=== PATIENT | male | born 1975 | race Caucasian/White ===

== ENCOUNTER 2018-01-25 13:01 | Outpatient (CLI) | payer OTHER, SELFPAY ==
--- NOTE | 2018-01-25 11:45 | DI.RAD_ITS ---
SYMPTOMS/DIAGNOSIS: LT LATERAL FOOT AND 5TH TOE PAIN, S/P INJURY, ROLLED 300 LB BARREL OVER FOOT LEFT FOOT: No fracture or dislocation is seen. IMPRESSION: Negative left foot.
== END 2018-01-25 13:21 ==
PROVIDERS: PCP Emergency Medicine; Visit Provider Nurse Practitioner Family
DX: M79.672 Pain in left foot (principal); M79.675 Pain in left toe(s)
CPT/HCPCS: 73630

== ENCOUNTER 2018-03-25 07:28 | Emergency (ER) | payer SELFPAY ==
[2018-03-25 07:36] VITALS: BP 114/79; PULSE 58; RESP 15; TEMP 37.1; O2SAT 97
--- NOTE | 2018-03-25 07:38 | ED.GENADUL_ITS ---
Discharge Plan Disposition Patient Disposition: HOME Condition: Stable Discharge Details Chief Complaint: EarProblem Clinical Impression: Pharyngitis, Ear pain, right Primary Care Provider: Yogi Lucas ED Provider: Meena Reagan Home Meds and New Rx's Prescriptions: No Action No Known Home Meds RF: 0 Discharge Instructions Instructions: Pharyngitis (ED), Earache (ED) Additional Instructions: Please return immediately to the emergency department if you develop any new or worsening symptoms or if you become otherwise concerned. It is extremely important that you make an appointment to be seen by your primary care doctor within the next 1-2 weeks in follow-up for this visit. Referrals: Yogi Lucas, [Primary Care Provider] - Medical Decision Making Lon Hartman is a 42-year-old man without history of major medical problems presenting to the emergency department with right-sided ear pain and throat pain with swallowing since yesterday morning. On exam he is very well and nontoxic-appearing. He is handling secretions without issue, he has exudate on bilateral retained tonsillar tissue and erythema of the posterior pharynx. There is no intraoral lesion or edema. Bilateral TMs with mild serous effusion , no injection or bulging, normal canals. No lymphadenopathy. Exam/history not consistent with meningitis, sepsis, abscess, impending airway compromise, or other acute life-threatening process. Concern for bacterial versus viral pharyngitis and likely referred pain to the ear. Plan for rapid strep, ibuprofen. Rapid strep negative. Suspect viral pharyngitis. Discussed appropriate ibuprofen, Tylenol use. Lengthy discussion with patient regarding return to emergency department precautions and importance of outpatient follow-up with his PCP. Patient is amenable to the plan. Medical Records Medical records reviewed: Yes I reviewed the patient's medical records. Lab Data Lab results reviewed: Yes I reviewed the patient's lab results. HPI General Mode of arrival: ambulatory . Date/Time Provider Initiated Documentation: 03/25/18 07:37 . Limitations to Documentation: no limitations . Information obtained by: RN notes reviewed and old records reviewed . HPI Narrative: Lon Hartman is a 22-year-old man reported history of major medical problems presenting to the emergency department with ear pain. Patient reports that yesterday morning he woke up with right-sided ear pain. He reports pain with swallowing, but no other pain. He reports that over the past week or so he has had cold symptoms, with nasal congestion and mild productive cough. No fevers, no difficulty swallowing, no shortness of breath, no vomiting /diarrhea, no rash, no numbness/tingling/weakness. Has been eating and drinking as usual. No recent travel. No drainage from the ear. Patient reports that as a child he had his adenoids and his tonsils removed, and also had tubes in his ears. He reports no ear problems since childhood. Took ibuprofen yesterday for ear pain, has not taken anything today. Related Data Home Medications Medication Instructions Recorded Confirmed Unknown [No Known Home Meds] 03/25/18 03/25/18 Allergies Allergy/AdvReac Type Severity Reaction Status Date / Time oxycodone HCl [From Percocet] AdvReac Mild Nausea Verified 03/25/18 07:39 Review of Systems Review of Systems Constitutional: denies fevers Eyes: denies eye pain ENT: denies facial pain, dental pain, reports sore throat, ear pain Cardiovascular: denies chest pain Respiratory: denies SOB, cough GI: denies abdominal pain, vomiting, diarrhea : denies flank pain MSK: denies back pain, neck pain, arthralgias, myalgias Skin: denies rash Neuro: denies headaches, n/t, weakness Exam Narrative Exam Narrative: Constitutional: well and [id number], pleasant, conversing normally HENT: head atraumatic, normocephalic normal inspection, mucous membranes moist, exudate on bilateral remaining tonsillar tissue, erythema the posterior pharynx , no intraoral lesion, no edema of the oropharynx, b/l canals normal, bilateral TMs with mild serous effusion and no injection or bulging, handling secretions without issue, uvula midline, normal voice Eyes: conjunctiva normal, sclera normal, pupils 3mm b/l Neck: no stridor, normal ROM, trachea midline, no lymphadenopathy Chest: normal inspection Resp: normal work of breathing, LCTAB Cardio: normal rate, normal rhythm, no murmur appreciated Back: normal inspection, no rash Skin: warm, dry, normal color, no rash Neuro: alert, not altered, grossly non-focal, normal tone Psych: normal mood, normal affect, normal behavior
[2018-03-25] MEDS: Ibuprofen 400 MG TAB PO (08:12)
[2018-03-25 08:44] VITALS: BP 114/79; PULSE 58; RESP 15; TEMP 37.1; O2SAT 97
== END 2018-03-25 08:45 | disposition home or self-care (01) ==
LOC: ER 08:53
PROVIDERS: Emergency Provider Student in an Organized Health Care Education/Training Program; PCP Emergency Medicine
DX: H92.01 Otalgia, right ear (principal); J02.9 Acute pharyngitis, unspecified
CPT/HCPCS: 87880; 99282; 87081

== ENCOUNTER 2018-09-25 09:36 | Emergency (ER) | payer SELFPAY ==
[2018-09-25 09:42] VITALS: BP 140/84; PULSE 86; RESP 12; TEMP 36.9; O2SAT 97
--- NOTE | 2018-09-25 09:53 | W.ED.GENAD ---
Discharge Plan Disposition Patient Disposition: HOME Condition: Improving Discharge Details Chief Complaint: Orthopedic Clinical Impression: Traumatic ecchymosis of knee Primary Care Provider: Yogi Lucas ED Provider: Reji Rodgers Home Meds and New Rx's Prescriptions: No Action No Known Home Meds RF: 0 Discharge Instructions Additional Instructions: Use rest, ice, elevation and compression to reduce discomfort. As we discussed, you will likely have ongoing migration of the bruising including down to the foot oftentimes. Return if you develop a fever, worsening swelling, or any other acute concerns. May use Tylenol and/or ibuprofen as needed for pain. May use warm/moist heat to improve speed of healing. Medical Decision Making 42-year-old male presents with right knee pain, swelling, bruising over 1 week's time since being struck while playing catcher in an adult softball league. He is well-appearing with normal vital signs. His exam is without deficit but does certainly demonstrate diffuse ecchymosis and swelling of the right knee. Patient referred for Xray: Discussed with him anticipated course of resolution and likely further dependent migration of bruising. We will advocate rest, ice, compression and elevation to improve and speed resolution. HPI General Mode of arrival: ambulatory. Date/Time Provider Initiated Documentation: 09/25/18 09:37. Limitations to Documentation: no limitations. Information obtained by: patient. History of Present Illness 42 year old M presents to the emergency department with the chief complaint of Right knee pain and swelling, described as moderate, Quality is described as aching, dull and constant, and is localized to the right and lower extremity. Patient reports no radiation. Patient started experiencing this day(s) and it has been constant. No relieving factors improve symptom(s), No exacerbating factors reported . Patient notes denies fever/chills. Patient did receive the following treatments prior to arrival, cold therapy Related Data Home Medications Medication Instructions Recorded Confirmed Unknown [No Known Home Meds] 03/25/18 09/25/18 Allergies Allergy/AdvReac Type Severity Reaction Status Date / Time oxycodone HCl [From Percocet] AdvReac Mild Nausea Verified 09/25/18 09:44 General Stated Complaint: Orthopedic ULISES: 4 Review of Systems Review of Systems No motor weakness. Denies other injury. 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 Pleasant, well groomed, interactive. HEAD: Normocephalic, atraumatic ENT: Mucous membranes moist, oropharynx unremarkable, External ear exam unremarkable EYES: PERRL, EOMI NECK: Full ROM, no ENEDELIA, no menigismus EXT: Full ROM, motor rated 5 out of 5 in the bilateral lower extremity. Sensation intact throughout. The right knee is diffusely swollen, tender, ecchymotic with distal anterior tibial bruising as well. 2+ DP bilaterally. Neuro: Grossly normal neurologic exam, conversant, interactive. Psych: Speech fluent, thoughts congruent, affect normal Course Vital Signs Temperature 36.9 C 09/25/18 09:42 Pulse 86 09/25/18 09:42 Respiratory Rate 12 09/25/18 09:42 Blood Pressure 140/84 09/25/18 09:42 Pulse Oximetry 97 09/25/18 09:42 Temperature 36.9 C 09/25/18 09:42 Temperature Source Temporal Artery Scan 09/25/18 09:42 Pulse 86 09/25/18 09:42 Respiratory Rate 12 09/25/18 09:42 Respiratory Effort Non-Labored 09/25/18 09:43 Blood Pressure 140/84 09/25/18 09:42 Blood Pressure Position Sitting 09/25/18 09:42 Pulse Oximetry 97 09/25/18 09:42 Oxygen Delivery Method Room Air 09/25/18 09:42 Oxygen Flow Rate 0 09/25/18 09:42 Pain Level 7 09/25/18 09:46
--- NOTE | 2018-09-25 10:23 | DI.RAD_ITS ---
SYMPTOM/DIAGNOSIS: PAIN, SWELLING AFTER BLUNT TRAUMA RIGHT KNEE: Four views were obtained. No fracture is seen.
== END 2018-09-25 10:32 | disposition home or self-care (01) ==
LOC: ER 10:35
PROVIDERS: Emergency Provider Emergency Medicine; PCP Emergency Medicine
DX: S80.01XA Contusion of right knee, initial encounter (principal); W50.0XXA Accidental hit or strike by another person, initial encounter
CPT/HCPCS: 73562; 99283; 99282

== ENCOUNTER 2018-09-30 12:44 | Outpatient (CLI) | payer SELFPAY ==
--- NOTE | 2018-09-30 11:30 | DI.RAD_ITS ---
SYMPTOMS/DIAGNOSIS: PAIN SINCE BODY COLLISION, M25.562 LEFT KNEE: The bony structures and joint spaces are intact. There is no evidence of a joint effusion. SUMMARY: No evidence of a fracture or dislocation.
== END 2018-09-30 13:04 ==
PROVIDERS: PCP Emergency Medicine; Visit Provider Nurse Practitioner Family
DX: M25.562 Pain in left knee (principal)
CPT/HCPCS: 73562

== ENCOUNTER 2019-02-05 08:58 | Emergency (ER) | payer SELFPAY ==
[2019-02-05 09:02] VITALS: BP 119/82; PULSE 96; RESP 16; TEMP 36.7; O2SAT 99
--- NOTE | 2019-02-05 09:02 | W.ED.GENAD ---
Discharge Plan Disposition Patient Disposition: HOME Condition: Stable Discharge Details Chief Complaint: GenMedical Clinical Impression: Hernia, inguinal, right Primary Care Provider: Yogi Lucas ED Provider: Navneet Carpio Home Meds and New Rx's Prescriptions: Continued naproxen 375 mg tablet 375 mg PO BID PRNRF: 0 Discharge Instructions Instructions: Inguinal Hernia (ED) Additional Instructions: follow up with general surgery if you have severe worsening pain or persistent vomit return to the emergency department Medical Decision Making 43 yo male comes in with several days of right groin pain intermittently and a lump in the area intermittently. Has never had this problem before, denies severe pain or vomit. Denies dysuria or testicle pain. On exam he has no abdominal tenderness, has a right inguinal hernia that is soft and reducible on exam. No testicle swelling or pain. Given he has reducible hernia that has no evidence of strangulation do not feel emergent workup indicated. will refer to generla surgery and return precautions given Differential Diagnosis Differential Diagnosis: inguinal hernia, abscess HPI General Mode of arrival: ambulatory. Date/Time Provider Initiated Documentation: 02/05/19 08:59. Limitations to Documentation: no limitations. Information obtained by: patient. History of Present Illness 43 year old M presents to the emergency department with the chief complaint of lump in right groin, described as mild, Quality is described as aching, Patient started experiencing this day(s) (3) and it has been intermittent. No relieving factors improve symptom(s), No exacerbating factors reported . Patient did receive the following treatments prior to arrival, none Related Data Home Medications Medication Instructions Recorded Confirmed naproxen 375 mg tablet 375 mg PO BID PRN 09/30/18 09/30/18 Allergies Allergy/AdvReac Type Severity Reaction Status Date / Time oxycodone HCl [From Percocet] AdvReac Mild Nausea Verified 09/30/18 10:58 General ULISES: 4 Review of Systems Review of Systems ROS Unobtainable: All systems reviewed & are unremarkable except as noted in HPI and below Constitutional Constitutional: Denies chills, Denies fever(s) and Denies weakness Cardiovascular Cardiovascular: Denies chest pain and Denies dyspnea Respiratory Respiratory: Denies dyspnea Gastrointestinal Gastrointestinal: Denies abdominal pain, Denies nausea and Denies vomiting Genitourinary Genitourinary: Denies dysuria Neurologic Neurologic: Denies weakness PFSH Social History Smoking/Tobacco Use Status: Current every day Quit status: considering quitting Counseling given: provider counseling and counseling >3 minutes Alcohol Intake: current Alcohol Intake frequency: 0-2 drinks per day Drug use: Daily Substance use type: marijuana Counseling provided: none Household members: significant other Number of Children: 3 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 [employer] Sexually active: Yes Do you feel safe at home: Yes Do you feel safe in your relationship?: Yes Exam Const General: no acute distress Orientation: alert HENMT Head: normal to inspection Ears: external ears normal General nose exam: external nose normal Mouth: moist mucous membranes Eyes General: appearance normal, both eyes and all related structures Neck Neck: normal visual inspection Resp Effort & Inspection: normal respiratory effort and able to speak in complete sentences Cardio Rate: regular rate GI Palpation: soft Skin General skin exam: no rashes or lesions noted Neuro General: alert and oriented x3 Extrem General: normal to inspection Psych Mental Status: mental status grossly normal
[2019-02-05 09:15] VITALS: RESP 16
--- NOTE | 2019-02-05 11:27 | NUR.NOTE ---
Addendum entered by Ebony Sanches 02/05/19 11:28: Fax [phone] Original Note: Nursing Note:Second referral faxed to [facility] in [place] for patient. Ebony Sanches.
== END 2019-02-05 09:23 | disposition home or self-care (01) ==
LOC: ER 10:07
PROVIDERS: Emergency Provider Emergency Medicine; PCP Emergency Medicine
DX: K40.90 Unilateral inguinal hernia, without obstruction or gangrene, not specified as recurrent (principal)
CPT/HCPCS: 99282

== ENCOUNTER 2019-02-18 07:55 | Day surgery (SDC) | payer SELFPAY ==
[2019-02-18] VITALS (8 sets, daily range): BP systolic 112–149; BP diastolic 64–91; PULSE 52–69; RESP 11–19; TEMP 36.1–36.5; O2SAT 96–99
[2019-02-18] MEDS: Lactated Ringers 1,000 ML 80 ML IV (08:29)
--- NOTE | 2019-02-18 09:13 | W.PM.DSUDISC ---
Discharge Plan Disposition Patient Disposition: HOME Condition: Good Discharge Details Reason For Visit: Right inguinal hernia repair and lymph node biopsy Attending Provider: Cristela Alcantara Primary Care Provider: Yogi Lucas Home Meds and New Rx's Prescriptions: Continued omeprazole 20 mg Tablet,Delayed Release (Dr/Ec) 20 mg PO DAILY RF: 0 Discharge Instructions Additional Instructions: The top bandage can be removed tomorrow. The steri strips will usually stick for about a week. When the edges start to curl up, they can be removed. It is okay to shower tomorrow, the water can run over the steri strips Do not swim or soak in a tub for two weeks Call for any concerns including fever, increased pain, vomiting, incision redness or drainage. Do not lift more than 15 pounds for four weeks. Walking and stairs are fine. Do not drive if on narcotic pain meds or if limited by pain. May use Tylenol alternating with ibuprofen for pain control. Ice is also an option. The maximum dose for Tylenol is 4000 mg/day. May use ibuprofen 800 mg every 8 hours as needed. If concerned about constipation, you may use a stool softener or milk of magnesia. Referrals: Cristela Alcantara MD [ [facility] STAFF PHYSICIAN] - (Return for a follow up visit in 10-14 days) Activity:: Do not lift more than 15# Remove Dressings/Wound Care:: 24 hours Shower/Bathe:: 24 hours Diet:: As Tolerated Discharge Orders Discharge Orders: Discharge Order (Routine); Ordered 02/18/19 Ordered By: Cristela Alcantara DS: Diagnosis Discharge Diagnosis (1) Right inguinal hernia: Status: Acute (2) Lymphadenopathy, inguinal: Status: Acute
[2019-02-18] MEDS: ceFAZolin 2 GM/50 ML BAG IVPB (09:24)
[2019-02-18] MEDS: Bupivacaine 0.25% Pres-Free 30 ML VIAL (09:33)
[2019-02-18] MEDS: Bupivacaine LIPOSOME/PF 133 MG/10 ML VIAL IJ (09:33)
--- NOTE | 2019-02-18 10:03 | LYM_PTH ---
PATIENT: SANA HODGES LOC: [facility] U#:[id number] AGE/SX: 43/M ROOM: RE02/18/[address]: Cristela Alcantara MD : 1975 BED: DIS: 02/18/2019 SPEC #: [id number] RECD: 02/18/19 12:41 STATUS: EJ REQ #: [id number] KATHERYN: 02/18/19 10:[address]: Cristela Alcantara DEPT: Surgical Specimen RECD BY: Floresita Cheung ENTERED: 02/18/19 12:42 SP TYPE: LYM OTHR DR: Yogi Lucas DO Tissues: 1 - LYMPH NODE BIOPSY 2 - FLOW CYTOMETRY NODE/TISSUE Procedures: GROSS AND MICRO LEVEL 4 FLOW CYTOMETRY LYMPHOMA PNL Comments: [id number] (3 TOUCH PREP SLIDES INCLUDED) (FLOW CYTOMETRY:[id number])
[2019-02-18] MEDS: HYDROmorphone 2 MG/ML VIAL IVP ×2 (10:57→11:06)
--- NOTE | 2019-02-19 09:53 | ROE_ITS ---
REPORT OF OPERATIVE PROCEDURE DATE OF PROCEDURE February 18, 2019 PREOPERATIVE DIAGNOSIS Right inguinal hernia. POSTOPERATIVE DIAGNOSES 1. Right inguinal hernia. 2. Right groin lymphadenopathy. PROCEDURES 1. Right inguinal hernia repair with mesh. 2. Excision right groin lymph node. SURGEON Cristela Alcantara M.D. ENAMEL FINISHER Saundra Tong. ANESTHESIA General, TAP block and local. INDICATIONS This is a 43-year-old man who presents with an uncomfortable bulge in his right groin. On examination, he has a reducible right inguinal hernia. PROCEDURE The patient was taken to the Operating Room and placed supine on the operating table. General anesthetic was induced. A right-sided TAP block was performed by Anesthesia. His right groin was then prepped and draped sterilely. The ASIS and pubic tubercle were identified and a transverse incision made between these two points, after injecting 1% lidocaine with epinephrine. The subcutaneous tissue was divided with cautery. Any veins encountered were clamped, divided and ligated with #3-0 Vicryl ties. The external oblique fascia was identified, as was the external inguinal ring. The patient was noted to have several prominent lymph nodes, just inferior to the inguinal ligament, which measured slightly over a cm in size. One of these was excised and sent to Pathology for routine staining, as well as flow cytometry. Inspection of the region revealed no evidence of a femoral hernia. The external oblique fascia was incised with a knife and then the incision extended bluntly through the external ring. The spermatic cord was encircled at the level of the pubic tubercle with a Trego drain. The patient was noted to have a laxity of the floor of the inguinal canal. He also had a cord lipoma that was dissected off of the spermatic cord and reduced through the internal ring. There was no indirect hernia sac identified. The hernia was repaired with a small mesh plug sutured into the internal ring, and then a flat sheet of mesh sutured to the floor of the inguinal canal in standard Danni fashion with a 2-0 Prolene stitch. There was good hemostasis. The external oblique fascia was closed with a running #3-0 Vicryl stitch, as was Ольга's fascia and the skin closed with a running #4-0 Monocryl subcuticular stitch. He tolerated the procedure well and was stable to Recovery. CC: Yogi Lucas D.O.
== END 2019-02-18 13:10 | disposition home or self-care (01) ==
PROVIDERS: PCP Emergency Medicine; Visit Provider Surgery
PROC: (CPT 49505; principal; 2019-02-18 09:00)
DX: K40.90 Unilateral inguinal hernia, without obstruction or gangrene, not specified as recurrent (principal); R59.0 Localized enlarged lymph nodes; K21.9 Gastro-esophageal reflux disease without esophagitis; F17.210 Nicotine dependence, cigarettes, uncomplicated; F12.90 Cannabis use, unspecified, uncomplicated; G89.18 Other acute postprocedural pain
CPT/HCPCS: 49505; 38531; 76942; 88305; 88184; 88185; C1781; J0690; J1100; J1885; J2250; J2405